=== PATIENT | male | born 1985 | race Caucasian/White ===

== ENCOUNTER 2018-08-06 07:32 | Emergency (ER) | payer OTHER, MEDICAID ==
[2018-08-06] MEDS: LEVALBUTEROL 1.25 MG/0.5 ML CONCENTRATE NEB NEB (08:41)
== END 2018-08-06 09:50 | disposition home or self-care (01) ==
LOC: M ED 07:32
DX: J02.9 Acute pharyngitis, unspecified (principal); J45.909 Unspecified asthma, uncomplicated; F33.9 Major depressive disorder, recurrent, unspecified; F41.9 Anxiety disorder, unspecified; F17.210 Nicotine dependence, cigarettes, uncomplicated; Z88.8 Allergy status to other drugs, medicaments and biological substances
CPT/HCPCS: 71046

== ENCOUNTER 2019-02-01 15:36 | Emergency (ER) | payer OTHER, SELFPAY ==
[~2019-02-01] VITALS: Ht 175.3 cm; Wt 79.5 kg
[~2019-02-01 15:36] MED LIST: LEVAINH INH; LEXA1TAB2 PO; TRAZ-163 PO; XANA1TAB2 PO; librium PO
[2019-02-01 15:37] VITALS: BP 140/83
[2019-02-01] MEDS ORDERED: DAYQ1LIQ PO (15:42)
[2019-02-01] MEDS ORDERED: IBUPROFEN 800 MG TAB PO ONE (16:15)
[2019-02-01 16:33] LABS: INFLUENZA A AMPLIFICATION POSITIVE (NEGATIVE); INFLUENZA B AMPLIFICATION NEGATIVE (NEGATIVE)
[2019-02-01] MEDS ORDERED: OSEL75CA PO (16:41)
[2019-02-01] MEDS ORDERED: OSELTAMIVIR PHOSPHATE 75 MG CAP (TAMIFLU) PO ONE (16:45)
== END 2019-02-01 16:55 | disposition home or self-care (01) ==
LOC: M ED 15:36
DX: J09.X2 Influenza due to identified novel influenza A virus with other respiratory manifestations (principal); F33.9 Major depressive disorder, recurrent, unspecified; F41.9 Anxiety disorder, unspecified; Z88.8 Allergy status to other drugs, medicaments and biological substances; F17.210 Nicotine dependence, cigarettes, uncomplicated

== ENCOUNTER → 2019-03-10 | Outpatient (REF) | payer OTHER ==
[~2019-03-10] MED LIST changes: +DAYQ1LIQ PO; +OSEL75CA PO
[2019-03-10 18:02] LABS: BASO # 0.1 10^3/uL (0.0-0.2); BASO % 0.7 % (0.0-1.0); EOS # 0.2 10^3/uL (0.0-0.50); EOS % 1.2 % (0.0-3.0); HEMATOCRIT 44.9 % (42.0-52.0); HEMOGLOBIN 15.1 g/dl (13.5-17.5); LYMPH # 2.2 10^3/uL (1.5-4.5); MEAN CORPUSCULAR HEMOGLOBIN 31.5 pg (27.0-33.0); MEAN CORPUSCULAR HGB CONC 33.6 g/dl (32.0-36.5); MEAN CORPUSCULAR VOLUME 93.5 fl (80.0-96.0); MONO # 0.9 10^3/uL (0.0-0.8); MONO % 6.1 % (0.0-5.0); NEUTROPHILS # 10.5 10^3/uL (1.8-7.7); NEUTROPHILS % 75.4 % (36.0-66.0); PLATELET COUNT, AUTOMATED 231 10^3/uL (150-450); WHITE BLOOD COUNT 13.9 10^3/uL (4.0-10.0)
[2019-03-10 18:35] LABS: ALBUMIN 4.5 GM/DL (3.2-5.2); ALT/SGPT 23 U/L (12-78); BILIRUBIN,TOTAL 0.5 MG/DL (0.2-1.0); BLOOD UREA NITROGEN 5 MG/DL (7-18); CALCIUM LEVEL 9.6 MG/DL (8.5-10.1); CARBON DIOXIDE LEVEL 28 MEQ/L (21-32); CHLORIDE LEVEL 103 MEQ/L (98-107); CHOLESTEROL LEVEL 167 MG/DL (<200); CHOLESTEROL RISK RATIO 3.479 (<5); CREATININE FOR GFR 0.87 MG/DL (0.70-1.30); GLOMERULAR FILTRATION RATE > 60.0 (>60); GLUCOSE, FASTING 81 MG/DL (70-100); HDL CHOLESTEROL 48 MG/DL (>40); LDL CHOLESTEROL 90 MG/DL (<100); NON-HDL-C 119 MG/DL; POTASSIUM SERUM 3.6 MEQ/L (3.5-5.1); SODIUM LEVEL 139 MEQ/L (136-145); TOTAL PROTEIN 7.3 GM/DL (6.4-8.2); TRIGLYCERIDES LEVEL 147 MG/DL (<150)
== END ==
LOC: M SFHCPLAZ 16:03
PROVIDERS: ATTEND Nurse Practitioner Family
DX: Z00.00 Encounter for general adult medical examination without abnormal findings (principal); F41.9 Anxiety disorder, unspecified; K92.1 Melena; K52.9 Noninfective gastroenteritis and colitis, unspecified

== ENCOUNTER 2019-05-11 13:25 | Emergency (ER) | payer OTHER ==
[~2019-05-11] VITALS: Ht 175.3 cm; Wt 80.9 kg
[2019-05-11 13:26] VITALS: BP 133/79
--- NOTE | 2019-05-11 14:53 | REP ---
RIGHT SHOULDER, THREE VIEWS: Three views of the right shoulder are performed. There is no acute fracture or dislocation. There is moderate narrowing and spurring at the acromioclavicular joint. IMPRESSION: No evidence of fracture or dislocation. Electronically Signed by Hipolito Dominguez MD 05/12/2019 12:37 P
--- NOTE | 2019-05-11 14:54 | REP ---
RIGHT ELBOW, FOUR VIEWS: There is no evidence of an acute fracture, dislocation or intrinsic bone disease. IMPRESSION: No fracture or dislocation. Electronically Signed by Hipolito Dominguez MD 05/12/2019 12:37 P
--- NOTE | 2019-05-11 14:57 | REP ---
RIGHT HAND, FOUR VIEWS: Four views of the right hand are performed. No acute fracture or dislocation is seen. There is an old healed fracture of the 4th metacarpal. A few tiny nonspecific soft tissues calcifications are seen in the 5th digit adjacent to the proximal interphalangeal joint. IMPRESSION: No acute fracture or dislocation. Electronically Signed by Hipolito Dominguez MD 05/12/2019 12:38 P
== END 2019-05-11 17:08 | disposition home or self-care (01) ==
LOC: M ED 13:25
DX: S43.401A Unspecified sprain of right shoulder joint, initial encounter (principal); S63.614A Unspecified sprain of right ring finger, initial encounter; S63.616A Unspecified sprain of right little finger, initial encounter; W17.89XA Other fall from one level to another, initial encounter; Y92.008 Other place in unspecified non-institutional (private) residence as the place of occurrence of the external cause; F41.9 Anxiety disorder, unspecified; Z88.8 Allergy status to other drugs, medicaments and biological substances; F17.210 Nicotine dependence, cigarettes, uncomplicated

== ENCOUNTER 2021-12-28 22:55 | Emergency (ER) | payer OTHER ==
[~2021-12-28] VITALS: Ht 175.3 cm; Wt 81.8 kg
[~2021-12-28 22:55] MED LIST changes: -TRAZ-163 PO; +TRAZ-257 PO
[2021-12-28 23:17] VITALS: BP 124/70
== END 2021-12-29 00:27 | disposition left against medical advice (07) ==
LOC: M ED 22:55 → EDBD 22:55 → M ED 12-29 00:27
DX: Z53.29 Procedure and treatment not carried out because of patient's decision for other reasons (principal)

== ENCOUNTER 2022-01-03 15:38 | Emergency (ER) | payer OTHER, SELFPAY ==
[~2022-01-03] VITALS: Ht 175.3 cm; Wt 87.8 kg
[2022-01-03 15:38] VITALS: BP 175/80
[2022-01-03] MEDS ORDERED: HYDR-3713 PO (17:58)
[2022-01-03] MEDS ORDERED: NORCO, ANEXSIA 5/325MG TABLET (HYDROcodone/ACETAMINOPHEN) PO ONE (18:00)
== END 2022-01-03 18:28 | disposition home or self-care (01) ==
LOC: M ED 15:38
DX: S82.451A Displaced comminuted fracture of shaft of right fibula, initial encounter for closed fracture (principal); S82.291A Other fracture of shaft of right tibia, initial encounter for closed fracture; X50.9XXA Other and unspecified overexertion or strenuous movements or postures, initial encounter; Y92.89 Other specified places as the place of occurrence of the external cause; Z88.8 Allergy status to other drugs, medicaments and biological substances

== ENCOUNTER → 2022-01-08 | Outpatient (REF) | payer OTHER ==
[~2022-01-08] MED LIST changes: +HYDR-3713 PO; +OXYC1TAB23 PO
[2022-01-08 16:48] LABS: APPEARANCE, URINE CLEAR (CLEAR); BACTERIA, URINE AUTO NEGATIVE (NEGATIVE); BILIRUBIN, URINE AUTO NEGATIVE (NEGATIVE); BLOOD, URINE BLOOD NEGATIVE (NEGATIVE); COLOR, URINE AMBER (YELLOW); GLUCOSE, URINE (UA) AUTO NEGATIVE (NEGATIVE); KETONE, URINE AUTO TRACE mg/dL (NEGATIVE); LEUKOCYTE ESTERASE, URINE AUTO NEGATIVE (NEGATIVE); MUCUS, URINE SMALL (NEGATIVE); NITRITE, URINE AUTO NEGATIVE (NEGATIVE); PROTEIN, URINE AUTO NEGATIVE (NEGATIVE); RBC, URINE AUTO 0 /HPF (0-3); SQUAMOUS EPITHELIAL CELL UR AU 0 /HPF (0-6); WBC, URINE AUTO 0 /HPF (0-3)
[2022-01-08 17:34] LABS: AMPHETAMINES URINE REFLEX NEGATIVE (NEGATIVE); BARBITURATES URINE REFLEX NEGATIVE (NEGATIVE); BENZODIAZEPINES URINE REFLEX NEGATIVE (NEGATIVE); COCAINE METABOLITE URINE REFLE NEGATIVE (NEGATIVE); METHADONE URINE REFLEX NEGATIVE (NEGATIVE); OPIATES URINE REFLEX NEGATIVE (NEGATIVE); PHENCYCLIDINE URINE REFLEX NEGATIVE (NEGATIVE)
[2022-01-08 17:43] LABS: CANNABINOIDS URINE REFLEX PENDING CONFIRMATION (NEGATIVE)
== END ==
LOC: M LAB REF 15:57
PROVIDERS: ATTEND Nurse Practitioner Family
DX: Z01.818 Encounter for other preprocedural examination (principal)
CPT/HCPCS: 80307; 81001; 87086; G0480

== ENCOUNTER → 2022-01-09 | Outpatient (CLI) | payer OTHER ==
[~2022-01-09] MED LIST changes: +NAPR-885 PO; +PERC5TAB12 PO
[2022-01-09 12:02] LABS: BASO # 0.1 10^3/uL (0.0-0.2); BASO % 0.9 % (0.0-1.0); EOS # 0.4 10^3/uL (0.0-0.5); EOS % 3.6 % (0.0-3.0); HEMATOCRIT 45.3 % (42.0-52.0); HEMOGLOBIN 15.2 g/dl (13.5-17.5); LYMPH # 1.6 10^3/uL (1.5-5.0); LYMPH % 14.1 % (24.0-44.0); MEAN CORPUSCULAR HEMOGLOBIN 32.9 pg (27.0-33.0); MEAN CORPUSCULAR HGB CONC 33.6 g/dl (32.0-36.5); MEAN CORPUSCULAR VOLUME 98.1 fl (80.0-96.0); MONO # 1.2 10^3/uL (0.0-0.8); MONO % 11.2 % (2.0-8.0); NEUTROPHILS # 7.7 10^3/uL (1.5-8.5); NEUTROPHILS % 69.5 % (36.0-66.0); PLATELET COUNT, AUTOMATED 265 10^3/uL (150-450); RED BLOOD COUNT 4.62 10^6/uL (4.30-6.10)
[2022-01-09 12:52] LABS: ALBUMIN 3.6 GM/DL (3.2-5.2); ALT/SGPT 38 U/L (12-78); BILIRUBIN,TOTAL 0.9 MG/DL (0.2-1.0); BLOOD UREA NITROGEN 5 MG/DL (7-18); CALCIUM LEVEL 8.9 MG/DL (8.5-10.1); CARBON DIOXIDE LEVEL 25 MEQ/L (21-32); CHLORIDE LEVEL 103 MEQ/L (98-107); CREATININE FOR GFR 0.72 MG/DL (0.70-1.30); GLOMERULAR FILTRATION RATE > 60.0 (>60); GLUCOSE, FASTING 80 MG/DL (70-100); POTASSIUM SERUM 3.8 MEQ/L (3.5-5.1); SODIUM LEVEL 135 MEQ/L (136-145); TOTAL PROTEIN 7.4 GM/DL (6.4-8.2)
== END ==
LOC: M LAB 10:54
PROVIDERS: ATTEND Nurse Practitioner Family
DX: Z01.818 Encounter for other preprocedural examination (principal)

== ENCOUNTER 2022-01-10 09:25 | Day surgery (SDC) | payer OTHER ==
[~2022-01-10] VITALS: Ht 175.3 cm; Wt 84.4 kg
[~2022-01-10 09:25] MED LIST changes: +LIDOCAINE 1% MDV 20ML VIAL SQ PRN; +LR 1,000 ML IV ONE; -NAPR-885 PO; -PERC5TAB12 PO; +ceFAZolin SOD 2 GM in IV 1 EA IV ONE
[2022-01-10] MEDS ORDERED: LIDOCAINE 1% MDV 20ML VIAL XX ONE (13:20)
[2022-01-10] MEDS ORDERED: ROPIvacaine 0.5% 30ML INJECTION (J2795 PER 1MG) XX ONE (13:20)
[2022-01-10] MEDS ORDERED: dexameTHASONE 4 MG/ML 1ML VIAL (J1100 PER 1MG) As Ordered ONE (14:35)
[2022-01-10] MEDS ORDERED: ACETAMINOPHEN 1000MG 100ML IV BTL (OFIRMEV) (J0131 PER 10MG) As Ordered ONE (14:35)
[2022-01-10] MEDS ORDERED: fentaNYL 100 MCG/2 ML INJECTION As Ordered ONE ×2 (14:35→15:56)
[2022-01-10] MEDS ORDERED: propofoL 200 MG/20 ML VIAL As Ordered ONE (14:35)
[2022-01-10] MEDS ORDERED: METOCLOPRAMIDE INJ 10MG/2ML VIAL (J2765 PER 1) As Ordered ONE (14:35)
[2022-01-10] MEDS ORDERED: KETOROLAC 60MG 2ML VIAL As Ordered ONE (14:35)
[2022-01-10] MEDS ORDERED: LIDOCAINE 2% 100MG/5ML SDV (FOR ANES.) As Ordered ONE (14:35)
[2022-01-10] MEDS ORDERED: ONDANSETRON 4MG/2ML VIAL As Ordered ONE (14:35)
[2022-01-10] MEDS ORDERED: MIDAZOLAM INJ 2MG/2ML VIAL (J2250 PER 1MG) As Ordered ONE (14:36)
[2022-01-10] MEDS ORDERED: EPINEPHrine INJ 1 MG/ML 1ML AMP As Ordered ONE (14:46)
[2022-01-10] MEDS: fentaNYL 100 MCG/2 ML INJECTION IV PRN ×2 (14:54→14:57)
[2022-01-10] MEDS: MIDAZOLAM INJ 2MG/2ML VIAL (J2250 PER 1MG) IV PRN ×3 (14:55→14:58)
[2022-01-10] MEDS ORDERED: BUPIVACAINE HCL 0.25% 30ML VIAL As Ordered ONE (15:07)
[2022-01-10] MEDS ORDERED: PERCOCET 5MG/325MG TAB PO PRN (18:40)
[2022-01-10] MEDS ORDERED: ONDANSETRON 4MG/2ML VIAL IV PRN (18:40)
[2022-01-10] MEDS ORDERED: METOCLOPRAMIDE INJ 10MG/2ML VIAL (J2765 PER 1) IV PRN (18:40)
[2022-01-10] MEDS ORDERED: fentaNYL 100 MCG/2 ML INJECTION IV PRN (18:40)
[2022-01-10] MEDS ORDERED: LR 1,000 ML IV SCH (18:40)
[2022-01-10 19:25] VITALS: BP 131/71
[2022-01-11] MEDS ORDERED: PERC5TAB12 PO (09:46)
[2022-01-11] MEDS ORDERED: NAPR-885 PO (09:46)
== END 2022-01-10 19:36 | disposition home or self-care (01) ==
LOC: M SDC 09:25
PROVIDERS: ATTEND Orthopaedic Surgery Hand Surgery
DX: S82.831A Other fracture of upper and lower end of right fibula, initial encounter for closed fracture (principal); S93.431A Sprain of tibiofibular ligament of right ankle, initial encounter; F17.210 Nicotine dependence, cigarettes, uncomplicated; X58.XXXA Exposure to other specified factors, initial encounter; Y92.9 Unspecified place or not applicable; Y93.9 Activity, unspecified; Y99.9 Unspecified external cause status; Z88.8 Allergy status to other drugs, medicaments and biological substances
CPT/HCPCS: 27792; 27829; 76000; C1713; C1762; J0131; J0690; J1100; J1885; J2250; J2405; J2765; J3010

== ENCOUNTER → 2022-01-19 | Outpatient (CLI) | payer OTHER ==
[~2022-01-19] MED LIST changes: -LIDOCAINE 1% MDV 20ML VIAL SQ PRN; -LR 1,000 ML IV ONE; +NAPR-885 PO; +PERC5TAB12 PO; -ceFAZolin SOD 2 GM in IV 1 EA IV ONE
== END ==
LOC: M SOG 13:31
PROVIDERS: ATTEND Orthopaedic Surgery Hand Surgery
DX: S82.61XA Displaced fracture of lateral malleolus of right fibula, initial encounter for closed fracture (principal); Y92.9 Unspecified place or not applicable; Y93.9 Activity, unspecified; Y99.9 Unspecified external cause status

== ENCOUNTER → 2022-01-31 | Outpatient (CLI) | payer OTHER | LOC: M SOG 10:44 | PROVIDERS: ATTEND Orthopaedic Surgery Hand Surgery | DX: M25.571 Pain in right ankle and joints of right foot (principal) ==

== ENCOUNTER 2022-02-09 05:06 | Emergency (ER) | payer OTHER ==
[~2022-02-09] VITALS: Ht 170.2 cm; Wt 77.3 kg
[2022-02-09] MEDS ORDERED: LORazepam 2 MG/ML VIAL IV STA (05:30)
[2022-02-09] MEDS ORDERED: NS 1,000 ML IV ONE (05:50)
[2022-02-09] MEDS ORDERED: ISOVUE-370 76% 100ML VIAL As Ordered ONE (06:00)
[2022-02-09 06:13] LABS: BASO # 0.1 10^3/uL (0.0-0.2); BASO % 0.9 % (0.0-1.0); EOS # 0.1 10^3/uL (0.0-0.5); EOS % 1.2 % (0.0-3.0); HEMATOCRIT 48.6 % (42.0-52.0); HEMOGLOBIN 16.6 g/dl (13.5-17.5); LYMPH # 0.8 10^3/uL (1.5-5.0); LYMPH % 8.6 % (24.0-44.0); MEAN CORPUSCULAR HGB CONC 34.2 g/dl (32.0-36.5); MEAN CORPUSCULAR VOLUME 93.6 fl (80.0-96.0); MONO % 11.2 % (2.0-8.0); NEUTROPHILS % 77.8 % (36.0-66.0); PLATELET COUNT, AUTOMATED 204 10^3/uL (150-450); RED BLOOD COUNT 5.19 10^6/uL (4.30-6.10)
[2022-02-09 06:23] LABS: INR 0.89; PROTHROMBIN TIME 12.4 SECONDS (12.7-14.5)
[2022-02-09 06:24] LABS: PARTIAL THROMBOPLASTIN TIME 31.4 SECONDS (25.9-37.0)
[2022-02-09 06:38] LABS: ALBUMIN 3.8 GM/DL (3.2-5.2); ALT/SGPT 100 U/L (12-78); BILIRUBIN,DIRECT 0.3 MG/DL (0.0-0.2); BILIRUBIN,TOTAL 0.9 MG/DL (0.2-1.0); BLOOD UREA NITROGEN 6 MG/DL (7-18); CALCIUM LEVEL 9.3 MG/DL (8.5-10.1); CARBON DIOXIDE LEVEL 26 MEQ/L (21-32); CHLORIDE LEVEL 102 MEQ/L (98-107); CREATININE FOR GFR 0.78 MG/DL (0.70-1.30); GLOMERULAR FILTRATION RATE > 60.0 (>60); GLUCOSE, FASTING 89 MG/DL (70-100); LIPASE 91 U/L (73-393); POTASSIUM SERUM 4.2 MEQ/L (3.5-5.1); SODIUM LEVEL 135 MEQ/L (136-145); TOTAL PROTEIN 7.1 GM/DL (6.4-8.2)
[2022-02-09] MEDS ORDERED: ONDANSETRON 4MG/2ML VIAL IV ONE (07:00)
[2022-02-09] MEDS ORDERED: GI COCKTAIL 50ML BTL(HYOSCYAMINE/MAALOX/LIDOCAINE VISCOUS)(1:3:1) PO ONE (07:00)
[2022-02-09] MEDS ORDERED: KETOROLAC 30 MG/ML 1ML VIAL IV ONE (09:35)
[2022-02-09] MEDS ORDERED: OXAZEPAM 15MG CAP PO ONE (10:00)
[2022-02-09] MEDS ORDERED: ONDA4TAB6 PO (10:26)
[2022-02-09 10:30] VITALS: BP 147/85
== END 2022-02-09 10:45 | disposition home or self-care (01) ==
LOC: M ED 05:06
DX: F10.188 Alcohol abuse with other alcohol-induced disorder (principal); R11.2 Nausea with vomiting, unspecified; F17.200 Nicotine dependence, unspecified, uncomplicated; Z79.899 Other long term (current) drug therapy; Z88.8 Allergy status to other drugs, medicaments and biological substances
CPT/HCPCS: 74177; 80047; 80048; 80076; 83605; 83690; 85025; 85610; 85730; 86850; 86900; 86901; 87505; 93041; 96361; 96374; 96375; 99285; J1885; J2060; J2405; Q9967

== ENCOUNTER 2024-04-24 11:08 | Emergency (ER) | payer OTHER, SELFPAY ==
[~2024-04-24] VITALS: Ht 175.3 cm; Wt 86.4 kg
[~2024-04-24 11:08] MED LIST changes: +ONDA4TAB6 PO
[2024-04-24] MEDS ORDERED: ACET325C5 PO (12:04)
[2024-04-24 13:45] VITALS: BP 120/66
[2024-04-24 13:51] VITALS: TEMP 97.6; O2SAT 96
== END 2024-04-24 14:04 | disposition home or self-care (01) ==
LOC: M ED 11:08 → EDBD 11:08 → M ED 14:04
DX: F19.10 Other psychoactive substance abuse, uncomplicated (principal); F17.210 Nicotine dependence, cigarettes, uncomplicated; F15.10 Other stimulant abuse, uncomplicated; F10.10 Alcohol abuse, uncomplicated; Z88.9 Allergy status to unspecified drugs, medicaments and biological substances; Z79.1 Long term (current) use of non-steroidal anti-inflammatories (NSAID)